=== PATIENT | female | born 2000 | race Caucasian/White ===

== ENCOUNTER 2025-05-31 13:15 | Emergency (ER) | payer BC, OTHER ==
[2025-05-31] MEDS ORDERED: diphenhydrAMINE 50 MG/ML VIAL ONE (13:58)
[2025-05-31] MEDS ORDERED: Dexamethasone 10 MG/ML VIAL ONE (13:58)
[2025-05-31] MEDS ORDERED: Famotidine/PF 20 mg/2ml Vial ONE (13:59)
== END 2025-05-31 15:51 | disposition home or self-care (01) ==
LOC: CSHERS 13:15
DX: T78.19XA Other adverse food reactions, not elsewhere classified, initial encounter (principal)
CPT/HCPCS: 96374; 96375; J1100; J1200; J1308